=== PATIENT | male | born 2005 | race Caucasian/White ===

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

== ENCOUNTER → 2025-01-12 14:35 | Outpatient (BNVA) | payer MEDICAID, SELFPAY | PROVIDERS: PCP Clinical Nurse Specialist Adult Health; Visit Provider Nurse Practitioner Family | DX: M25.561 Pain in right knee (principal) | CPT/HCPCS: 73562 ==

== ENCOUNTER 2025-01-14 14:11 | Outpatient (CLI) | payer MEDICAID, SELFPAY ==
--- NOTE | 2025-01-14 14:30 | MR_ITS ---
WS: [id number] MRI RIGHT KNEE HISTORY: M25.561 - Pain in right knee COMPARISON: Radiograph 01/12/2025 Anterior cruciate ligament: Intact. Small amount of fluid along the ACL but no tear identified. Posterior cruciate ligament: Intact. Medial collateral ligament: Intact. Posterior lateral corner structures: Fibular collateral ligament is intact. Biceps femoris tendon is intact. There is abnormal soft tissue between the biceps femoris tendon and the lateral tibial plateau. This signal abnormality is just superior to the fibular head and closely associated with the popliteus tendon. Small amount of fluid at the insertion site of the popliteus tendon to the femoral condyle. No full-thickness tear. Medial menisci: Intact. Normal signal, size and shape. Lateral meniscus: Intact. Normal signal, size and shape. Extensor mechanism: Distal quadriceps tendon and patellar tendons are intact. Fluid and soft tissue: Large suprapatellar joint effusion. Thin bands of complete identified within the joint effusion. There is additional featherlike stranding within the vastus lateralis muscle and extending posterior to the knee into the popliteus muscle. Fluid extends posteriorly along the lateral gastrocnemius muscle. No Garrison's cyst. Osseous and articular structures: Patellofemoral compartment: Slight lateral subluxation of the patella. No definite patellar retinaculum tear identified. Medial compartment: No significant narrowing of the medial compartment. No marrow edema. Lateral compartment: No joint space narrowing. There is very subtle area of marrow edema involving the fibular head and the lateral tibial plateau. MR/MR knee RT wo con* [id number] IMPRESSION: 1. Large amount of featherlike edema within the muscles. Most significant amou nt of edema in the vastus lateralis and the popliteus muscle. 2. Large suprapatellar joint effusion with plica. 3. Heterogeneous soft tissue just directly above the fibular head and lateral to the tibial plateau. Suspect this may be an area of hemorrhage from the recen t injury. Possibility of tear involving the popliteus muscle should be consider ed. 4. Partial insertion site tear of the popliteus tendon at the insertion of the femoral condyle. 5. Biceps femoris tendon and fibular collateral ligaments are intact. 6. No meniscal tear. 7. No ACL tear. 8. Small amount of marrow edema noted in the fibular head and the lateral tibi al plateau. Recommendation: Consider evaluation by orthopedics. Follow-up MRI RIGHT knee in 6 to 8 weeks may also be of benefit to ensure there is improvement and resolut ion. No history of trauma but I suspect these findings may be related to trauma with hemorrhage. Possible partial tear involving the popliteus muscle.
== END 2025-01-14 14:12 | disposition home or self-care (01) ==
LOC: RAD 14:13
PROVIDERS: PCP Nurse Practitioner Family; Visit Provider Nurse Practitioner Family
DX: M25.561 Pain in right knee (principal); M25.461 Effusion, right knee; M25.661 Stiffness of right knee, not elsewhere classified; R60.0 Localized edema; M67.51 Plica syndrome, right knee; S86.211A Strain of muscle(s) and tendon(s) of anterior muscle group at lower leg level, right leg, initial encounter; S86.821A Laceration of other muscle(s) and tendon(s) at lower leg level, right leg, initial encounter; X58.XXXA Exposure to other specified factors, initial encounter; M70.961 Unspecified soft tissue disorder related to use, overuse and pressure, right lower leg
CPT/HCPCS: 73721